=== PATIENT | female | born 1945 | race African-American/Black ===

== ENCOUNTER 2021-03-23 16:31 | Emergency (ER) | payer OTHER ==
[2021-03-23 16:42] VITALS: PULSE 67; TEMP 98.1; BMI 31.1
[2021-03-23] MEDS ORDERED: hydrALAZINE HCL 25 MG TABLET (FP) PO ONE (18:03)
[2021-03-23] MEDS ORDERED: hydrALAZINE HCL 25 MG TABLET (FP) ONE (18:36)
[2021-03-23] MEDS ORDERED: NITROGLYCERIN SUBLINGUAL 1/150 0.4 MG TAB SL ONE ×2 (19:30→19:45)
[2021-03-23] MEDS ORDERED: LOSARTAN POTASSIUM 50 MG TABLET PO ONE (19:34)
[2021-03-23] MEDS ORDERED: LOSARTAN POTASSIUM 25 MG TABLET PO ONE (19:42)
[2021-03-23 19:48] LABS: BASO % 1.1 % (0-2.0); EOS % 1.7 % (0-4.5); HEMATOCRIT 33.6 % (32.4-45.2); HEMOGLOBIN 11.1 GM/dL (10.7-15.3); LYMPH % 24.3 % (8-40); MCH 29.4 pg (25.7-33.7); MEAN CELL VOLUME 88.9 fl (80-96); MEAN PLT VOLUME 9.9 fl (7.5-11.1); MONO % 6.6 % (3.8-10.2); NEUT % 66.3 % (42.8-82.8); PLATELET COUNT 243 K/MM3 (134-434); RBC 3.78 M/mm3 (3.60-5.2); RDW 15.6 % (11.6-15.6); WHITE BLOOD COUNT 6.8 K/mm3 (4.0-10.0)
[2021-03-23 20:09] LABS: CHLORIDE 104 mmol/L (98-107); SODIUM 140 mmol/L (136-145)
[2021-03-23 20:10] LABS: CALCIUM 9.1 mg/dL (8.5-10.1); GLUCOSE,RANDOM 118 mg/dL (74-106)
[2021-03-23 20:11] LABS: ALBUMIN 3.9 g/dl (3.4-5.0); ANION GAP 6 MMOL/L (8-16); BLOOD UREA NITROGEN 8.1 mg/dL (7-18); CO2 30 mmol/L (21-32)
[2021-03-23 20:13] LABS: SGPT/ALT 20 U/L (13-61)
[2021-03-23 20:14] LABS: CREATININE 0.8 mg/dL (0.55-1.3); SGOT/AST 21 U/L (15-37)
[2021-03-23 20:15] LABS: BILIRUBIN,TOTAL 0.6 mg/dL (0.2-1); TOT PROT 7.5 g/dl (6.4-8.2)
[2021-03-23 20:16] LABS: ALK PHOS 99 U/L (45-117)
[2021-03-23] MEDS ORDERED: LOSARTAN POTASSIUM 50 MG TABLET ONE (20:16)
[2021-03-23 20:21] VITALS: BP 148/110
== END 2021-03-23 21:39 | disposition home or self-care (01) ==
LOC: JER 16:31
DX: R03.0 Elevated blood-pressure reading, without diagnosis of hypertension (principal)
CPT/HCPCS: 36415; 71046-TC-FY; 80053; 84484; 85025; 93005; 93010; 99285-25